=== PATIENT | male | born 1950 | race Hispanic/Latino ===

== ENCOUNTER 2021-08-14 12:21 | Emergency (ER) | payer SELFPAY ==
[~2021-08-14] VITALS: Ht 167.6 cm; Wt 67.0 kg
[2021-08-14] MEDS ORDERED: LORTAB 5/3255 MG PO (15:24)
[2021-08-14 15:47] VITALS: BP 145/88
== END 2021-08-14 15:47 | disposition home or self-care (01) | DRG 563 ==
LOC: ED 12:21
PROC: 2W3DX1Z Immobilization of Left Lower Arm using Splint (ICD-10-PCS; principal; 2021-08-14)
DX: S52.502A Unspecified fracture of the lower end of left radius, initial encounter for closed fracture (principal); F17.210 Nicotine dependence, cigarettes, uncomplicated; W17.89XA Other fall from one level to another, initial encounter; Y93.89 Activity, other specified; Y92.73 Farm field as the place of occurrence of the external cause; Y99.0 Civilian activity done for income or pay

== ENCOUNTER 2021-10-09 09:51 | Emergency (ER) | payer SELFPAY ==
[~2021-10-09] VITALS: Ht 167.6 cm; Wt 81.8 kg
[~2021-10-09 09:51] MED LIST: LORTAB 5/3255 MG PO
[2021-10-09 10:51] VITALS: BP 138/74
== END 2021-10-09 10:51 | disposition home or self-care (01) | DRG 951 ==
LOC: ED 09:51
DX: Z46.89 Encounter for fitting and adjustment of other specified devices (principal)